=== PATIENT | male | born 1960 | race Caucasian/White ===

== ENCOUNTER → 2024-05-09 15:06 | Outpatient (REF) | payer OTHER, SELFPAY | LOC: RAD 15:06 | PROVIDERS: ATTENDING PHYSICIAN Internal Medicine Hematology & Oncology; FAMILY PHYSICIAN Family Medicine | DX: C25.0 Malignant neoplasm of head of pancreas (principal) | CPT/HCPCS: 71260; 74177; Q9967 ==